=== PATIENT | female | born 1970 | race Caucasian/White ===

== ENCOUNTER 2022-05-12 15:25 | Emergency (ER) | payer BC, SELFPAY ==
[2022-05-12 15:25] VITALS: BP 126/80; PULSE 80; RESP 16; TEMP 36.9
[2022-05-12 15:30] VITALS: BP 126/80; PULSE 80; RESP 16; TEMP 36.9; O2SAT 97
--- NOTE | 2022-05-12 15:36 | ED.HA ---
HPI - Headache General Chief Complaint: Headache Stated Complaint: Headache, blurry vision, vomiting Time Seen by Provider: 05/12/22 15:35 Source: patient and RN notes reviewed Mode of arrival: ambulatory Limitations: no limitations History of Present Illness MD elicited complaint: migraine Onset (ago): day(s) (2) Onset description: suddenly Location: left, frontal and parietal Severity: similar to previous episodes Pain scale (0-10): 8 Quality & Timing: throbbing Exacerbating factors: light Relieving factors: nothing Associated symptoms: nausea and vomiting Treatments prior to arrival: ibuprofen Related Data Home Medications Medication Instructions Recorded Confirmed No Home Medications 05/12/22 05/12/22 Allergies Allergy/AdvReac Type Severity Reaction Status Date / Time No Known Allergies Allergy Verified 05/12/22 15:38 Review of Systems Review of Systems: All systems reviewed & are unremarkable except as noted in HPI and below PMFSH Past Medical History Medical History (Updated 05/12/22 @ 16:07 by David Chatman MD) Post concussive syndrome Surgical History Surgical History (Updated 05/12/22 @ 15:37 by David Chatman MD) History of total abdominal hysterectomy Social History Social History (Updated 05/12/22 @ 15:37 by Dvaid Chatman MD) Smoking status: Never smoker Exam Const: General: healthy appearing, no acute distress and alert Nutritional Appearance: well nourished Orientation/consciousness: patient oriented x3 Limitations: no limitations HENMT: Head: normal to inspection Ears: external ears normal and TM's normal bilaterally Face/Nose/Sinus: Normal external nose present Face and sinus: normal facial exam Mouth: Yes moist mucous membranes abnormal Eyes: Conjunctivae: conjunctivae normal Pupils: Equal, round and reactive pupils present EOM: EOMs intact bilaterally Neck: Neck: normal visual inspection and no meningeal signs Resp: Effort & Inspection: normal respiratory effort Auscultation: clear to auscultation bilaterally Cardio: Rate: regular rate Rhythm: regular rhythm GI: GI Palp: Yes Soft to palpation and No Tenderness to palpation present (GI) Auscultation: normal bowel sounds Back/Spine/Pelvis: Cervical Spine: cervical ROM normal Thoracic/Lumbar Spine: thoraco-lumbar ROM normal Skin: General skin exam: normal color Rashes: no rashes Neuro: General: patient oriented x3, moves all extremities, no focal motor deficits and CN's II-XI intact bilaterally Speech: normal speech Gait exam (Neuro): Normal gait present Extrem: General: normal to inspection and no clubbing, cyanosis or edema Psych: Mental Status: mental status grossly normal Affect: normal affect Attitude: cooperative Course Vital Signs Vital signs: Vital Signs Temperature 36.9 C 05/12/22 15:25 Pulse Rate 80 05/12/22 15:25 Respiratory Rate 16 05/12/22 15:25 Blood Pressure 126/80 05/12/22 15:25 Oxygen Delivery Room Air 05/12/22 15:25 Temperature 36.9 C 05/12/22 15:38 Pulse Rate 78 05/12/22 16:30 Respiratory Rate 16 05/12/22 16:30 Blood Pressure 118/81 05/12/22 16:30 Pulse Oximetry 95 05/12/22 16:30 Oxygen Delivery Room Air 05/12/22 16:30 Discharge Plan Discharge Clinical Impression: Migraine Qualifiers: Migraine type: with aura Status migrainosus presence: without status migrainosus Intractability: not intractable Qualified Code(s): G43.109 - Migraine with aura, not intractable, without status migrainosus Patient Disposition: Home, Self-Care Condition: Stable Instructions: Antibiotic Form Additional Instructions: home rest in a quiet dark room. Prescriptions: No Action No Home Medications Follow-up/Referrals: UNKNOWN,DOCTOR [Primary Care Provider] - Time of Disposition: 16:10
[2022-05-12 15:38] VITALS: BP 126/80; PULSE 80; RESP 16; TEMP 36.9
[2022-05-12] MEDS: METOCLOPRAMIDE HCL INJ 10 MG/2 ML VIAL IV PUSH (15:57)
[2022-05-12] MEDS: diphenhydrAMINE HCl INJ 50 MG/ML VIAL IV PUSH (15:59)
[2022-05-12] MEDS: KETOROLAC 30 MG/ML VIAL (*BKC) IV PUSH (15:59)
[2022-05-12 16:30] VITALS: BP 118/81; PULSE 78; RESP 16; O2SAT 95
== END 2022-05-12 16:37 | disposition home or self-care (01) ==
PROVIDERS: Emergency Provider Emergency Medicine
DX: G43.109 Migraine with aura, not intractable, without status migrainosus (principal)
CPT/HCPCS: 96374; 96375; 99284; J1200; J1885; J2765